=== PATIENT | female | born 1965 | race American Indian/Alaskan Native ===

== ENCOUNTER 2017-07-21 23:32 | Emergency (ER) | payer MEDICAID ==
[2017-07-22 00:58] LABS: RBC URINE 11 /hpf (0-3); URINE BACTERIA RARE (<OCC); URINE BILIRUBIN NEGATIVE (NEGATIVE); URINE BLOOD 1+ (NEGATIVE); URINE COLOR Yellow (YELLOW); URINE GLUCOSE (UA) NORMAL (Normal); URINE HYALINE CAST 0-2 /lpf (0-2); URINE KETONE 1+ mg/dL (NEGATIVE); URINE LEUKOCYTE ESTERASE 2+ Leu/uL (Negative); URINE PROTEIN 1+ mg/dL (NEGATIVE); WBC URINE 20 /hpf (0-5)
--- NOTE | 2017-07-22 01:10 | C.PDOC ---
History Of Present Illness 51 y/o female presents to ED with complaints of lower back pain for 1 day worse when walking or bending. Patient was seen at [facility] earlier and given Ibuprofen and as per patient "a shot for pain". Patient states pain went away but came back and now radiates to legs. Patient reports dysuria and denies injury, weakness, numbness or any other complaints at this time. Time Seen by Provider: 07/21/17 23:48 Chief Complaint (Nursing): Back Pain History Per: Patient History/Exam Limitations: no limitations Onset/Duration Of Symptoms: Days Current Symptoms Are (Timing): Still Present Quality Of Discomfort: "Pain" Past Medical History Reviewed: Historical Data, Nursing Documentation, Vital Signs Vital Signs: Last Vital Signs Temp 97.8 F 07/22/17 05:15 Pulse 73 07/22/17 05:15 Resp 18 07/22/17 05:15 BP 121/84 07/22/17 05:15 Pulse Ox 95 07/22/17 05:15 - Medical History PMH: Anemia (takes iron pills), Anxiety, Asthma, Bipolar Disorder, Depression, HTN, Seizures (uses keppra for control) Surgical History: Cholecystectomy - [facility] Procedures DETOXIFICATION SERVICES FOR SUBSTANCE ABUSE TREATMENT (02/13/16) GROUP POULTRY TENDER FOR SUBSTANCE ABUSE TREATMENT, PSYCHOEDUCATION (02/13/16) Family History: States: No Known Family Hx - Social History Hx Tobacco Use: Yes Hx Alcohol Use: Yes Hx Substance Use: No Review Of Systems Except As Marked, All Systems Reviewed And Found Negative. Constitutional: Negative for: Fever, Chills Gastrointestinal: Negative for: Nausea, Vomiting, Abdominal Pain Genitourinary: Positive for: Dysuria. Negative for: Hematuria Musculoskeletal: Positive for: Back Pain Skin: Negative for: Rash Neurological: Negative for: Weakness, Numbness Physical Exam - Physical Exam Appears: Non-toxic, No Acute Distress Skin: Warm, Dry, No Rash Head: Atraumatic, Normacephalic Eye(s): bilateral: Normal Inspection, PERRL, EOMI Oral Mucosa: Moist Neck: Normal ROM, No Midline Cervical Tenderness, No Paracervical Tenderness, Supple Chest: Symmetrical, No Tenderness Cardiovascular: Rhythm Regular, No Friction Rub, No Murmur Respiratory: Normal Breath Sounds, No Rales, No Rhonchi, No Wheezing Gastrointestinal/Abdominal: Soft, No Tenderness, No Guarding, No Rebound Back: Normal Inspection, No CVA Tenderness, No Vertebral Tenderness, No Paraspinal Tenderness Extremity: Normal ROM, No Calf Tenderness, Capillary Refill (<2 seconds), No Swelling Neurological/Psych: Oriented x3, Normal Motor, Normal Sensation Gait: Steady ED Course And Treatment O2 Sat by Pulse Oximetry: 98 (RA) Pulse Ox Interpretation: Normal Medical Decision Making Medical Decision Making: Patient did not have any urinary symptoms. Patient was informed of the LS spine xrays of wedge compression deformity. On re-exam, the patient reports improvement of symptoms. Lungs are CTA, heart is RRR, Ambulatory in ED with steady gait. Abdomen is soft, non-tender and patient is tolerating PO well. Follow up with the medical doctor within 1-2 days. Return if worsened. Disposition - Disposition Disposition: HOME/ ROUTINE Disposition Time: 06:30 Condition: GOOD Instructions: Back Pain (ED) Forms: [employer] (Maltese) - Clinical Impression Clinical Impression: Low back pain - PA / SUPERVISOR [employer] / Resident Statement MD/DO has reviewed & agrees with the documentation as recorded. - Scribe Statement The provider has reviewed the documentation as recorded by the Scriblisa Tamez All medical record entries made by the Ruby were at my direction and personally dictated by me. I have reviewed the chart and agree that the record accurately reflects my personal performance of the history, physical exam, medical decision making, and the department course for this patient. I have also personally directed, reviewed, and agree with the discharge instructions and disposition.
[2017-07-22 03:28] VITALS: RESP 18
[2017-07-22 05:15] VITALS: BP 121/84; PULSE 73; TEMP 97.8
[2017-07-22 06:57] VITALS: O2SAT 98
--- NOTE | 2017-07-22 10:38 | RAD ---
PROCEDURE: Radiographs of the Lumbar Spine. HISTORY: low back pain COMPARISON: No prior. FINDINGS: BONES: Loss of height L5 vertebral body. Diffuse osteopenia. DISC SPACES: Unremarkable. OTHER FINDINGS: Degenerative changes both hips. IMPRESSION: Loss of height L5 vertebral body likely old compression fracture.
== END 2017-07-22 05:31 | disposition home or self-care (01) ==
LOC: C.ER 23:32
DX: M54.5 Low back pain (principal)

== ENCOUNTER 2017-11-09 08:06 | Inpatient (IN) | payer MEDICAID ==
--- NOTE | 2017-11-09 08:50 | C.PDOC ---
History Of Present Illness 51-YEAR-OLD FEMALE, PRESENTS TO THE EMERGENCY DEPARTMENT STATING "I STILL FEEL SUICIDAL". PS SEEN @ [facility] YESTERDAY FOR SAME AND WAS DC. DOES NOT REPORT ACTIVE PLAN. +HEROIN AND COCAINE USE. HOMELESS EXAM NONTOXIC PSYCH +SI, NO ACTIVE HALLUCINATIONS CALM COOPERATIVE NO ACUTE INTOX OR WITHDRAWAL REMAIDNER NEG Time Seen by Provider: 11/09/17 08:46 Chief Complaint (Nursing): Psychiatric Evaluation History Per: Patient, EMS History/Exam Limitations: no limitations Onset/Duration Of Symptoms: Days Current Symptoms Are (Timing): Still Present Past Medical History Reviewed: Historical Data, Nursing Documentation, Vital Signs Vital Signs: Last Vital Signs Temp 98.1 F 11/09/17 08:12 Pulse 98 H 11/09/17 08:12 Resp 20 11/09/17 08:12 BP 137/94 H 11/09/17 08:12 Pulse Ox 100 11/09/17 11:34 - Medical History PMH: Anemia (takes iron pills), Anxiety, Asthma, Bipolar Disorder, Depression, HTN, Seizures (uses keppra for control) Denies: Diabetes, Hepatitis, HIV, Chronic Kidney Disease, Sexually Transmitted Disease Surgical History: Cholecystectomy - [facility] Procedures DETOXIFICATION SERVICES FOR SUBSTANCE ABUSE TREATMENT (08/17/17) GROUP RUBBER MOLDER FOR SUBSTANCE ABUSE TREATMENT, PSYCHOEDUCATION (02/13/16) INDIV PSYCHOTHERAPY FOR SUBSTANCE ABUSE TREATMENT, SUPPORT (08/17/17) INDIV PSYCHOTHERAPY FOR SUBSTANCE ABUSE, COGNITIV BEHAVIORAL (08/17/17) INDIV PSYCHOTHERAPY FOR SUBSTANCE ABUSE, PSYCHOEDUCATION (08/17/17) Family History: States: No Known Family Hx - Social History Hx Tobacco Use: Yes Hx Alcohol Use: No Hx Substance Use: Yes (cocaine, and heroin use) - Immunization History Hx Tetanus Toxoid Vaccination: No Hx Influenza Vaccination: No Hx Pneumococcal Vaccination: No Review Of Systems Except As Marked, All Systems Reviewed And Found Negative. Constitutional: Negative for: Fever, Chills Cardiovascular: Negative for: Chest Pain, Palpitations Respiratory: Negative for: Shortness of Breath Gastrointestinal: Negative for: Nausea, Vomiting Neurological: Negative for: Headache, Dizziness Psych: Positive for: Depression, Suicidal ideation. Negative for: Withdrawal Physical Exam - Physical Exam Appears: Non-toxic, No Acute Distress, Other ( +SI, NO ACTIVE HALLUCINATIONS CALM COOPERATIVE NO ACUTE INTOX OR WITHDRAWAL) Skin: Normal Color, Warm, Dry, No Rash Head: Normacephalic Eye(s): bilateral: PERRL Nose: Normal Oral Mucosa: Moist Lips: Normal Appearing Neck: Normal ROM Cardiovascular: Rhythm Regular, No Murmur Respiratory: Normal Breath Sounds, No Accessory Muscle Use Extremity: Normal ROM, Capillary Refill (<2 SECONDS), No Deformity, No Swelling Neurological/Psych: Oriented x3, Normal Speech ED Course And Treatment - Laboratory Results Result Diagrams: 11/09/17 09:20 11/09/17 09:20 O2 Sat by Pulse Oximetry: 100 Progress - Re-Evaluation Re-evaluation Note: 11/09/17 08:54 D/W CRISIS WILL EVAL IN ER 11/09/17 11:34 MED CLEAR FOR PSYCH. CRISIS NOTIFIED - Data Reviewed Data Reviewed: Lab, Old records - Continuity of Care Discussed pt. case with sales consultant/specialty: Psychiatry Medical Decision Making Medical Decision Making: Plan: * Labs * UA * Reassess and Disposition Disposition Counseled Patient/Family Regarding: Studies Performed, Diagnosis - Disposition Disposition: HOSPITALIZED Disposition Time: 14:12 Condition: STABLE Forms: [employer] ([place] Citizen) - Clinical Impression Clinical Impression: Bipolar disorder, Drug abuse - Scribe Statement The provider has reviewed the documentation as recorded by the Scribe (Henrik Pena) All medical record entries made by the Scribe were at my direction and personally dictated by me. I have reviewed the chart and agree that the record accurately reflects my personal performance of the history, physical exam, medical decision making, and the department course for this patient. I have also personally directed, reviewed, and agree with the discharge instructions and disposition. Decision To Admit - Pt Status Changed To: Hospital Disposition Of: Inpatient - Admit Certification Admit to Inpatient:: After my assessment, the patient will require hospitalization for at least two midnights. This is because of the severity of symptoms shown, intensity of services needed, and/or the medical risk in this patient being treated as an outpatient. - InPatient: Physician Admission Certification: I certify that this patient requires 2 or more midnights of care for the following reason:: SEENOTE - . Bed Request Type: Detox Admitting Physician: Gilson Lord Patient Diagnosis: Bipolar disorder, Drug abuse
[2017-11-09 09:29] LABS: BASO % 0.6 % (0.0-2.0); EOS # 0.2 K/uL (0.0-0.7); EOS % 2.1 % (0.0-4.0); HEMOGLOBIN 10.5 g/dL (11.0-16.0); LYMPH # 2.3 K/uL (1.0-4.3); LYMPH % 26.5 % (20.0-40.0); MEAN CELL VOLUME 80.4 fL (81.0-99.0); MEAN CORPUSCULAR HEMOGLOBIN 26.7 pg (27.0-31.0); MEAN CORPUSCULAR HGB CONC 33.2 g/dL (33.0-37.0); MEAN PLATELET VOLUME 8.8 fL (7.2-11.7); MONO # 0.5 K/uL (0.0-0.8); MONO % 6.3 % (0.0-10.0); NEUT # 5.5 K/uL (1.8-7.0); NEUT % 64.5 % (50.0-75.0); RBC 3.94 Mil/uL (3.80-5.20); WHITE BLOOD COUNT 8.6 K/uL (4.8-10.8)
[2017-11-09 09:46] LABS: ALB/GLOB RATIO 1.1 (1.0-2.1); ALBUMIN 3.4 g/dL (3.5-5.0); ALT/SGPT 17 U/L (9-52); AST/SGOT 27 U/L (14-36); BLOOD UREA NITROGEN 15 mg/dL (7-17); GFR AFRICAN-AMERICAN > 60; GFR NON-AFRICAN AMERICAN 58
[2017-11-09 10:42] LABS: SQUAMOUS EPITHIAL 9 /hpf (0-5); URINE BACTERIA RARE (<OCC); URINE BILIRUBIN NEGATIVE (NEGATIVE); URINE BLOOD NEGATIVE (NEGATIVE); URINE CLARITY Hazy (Clear); URINE COLOR Yellow (YELLOW); URINE GLUCOSE (UA) NORMAL (Normal); URINE LEUKOCYTE ESTERASE TRACE Leu/uL (Negative); URINE PROTEIN NEGATIVE (NEGATIVE)
[2017-11-09 10:59] LABS: BARBITURATES, UR NEGATIVE (NEGATIVE); BENZODIAZEPINES, UR NEGATIVE (NEGATIVE); PHENCYCLIDINE, UR NEGATIVE (NEGATIVE)
[2017-11-09 11:33] LABS: OPIATES, UR POSITIVE (NEGATIVE)
[2017-11-09] MEDS ORDERED: Potassium Chloride 20 mEq/15 ml LIQ UD PO STA (14:52)
--- NOTE | 2017-11-09 16:17 | PCM.BM ---
<Lisset Adams - Last Filed: 11/09/17 16:14> Treatment Plan Problems - Problems identified on initial assessmt Depression Date Initiated: 11/09/17 Time Initiated: 16:14 Assessment reference: NA Status: Active Treatment assets and liabiliti Patient Assests: cooperative, negotiates basic needs Patient Liabilities: live alone, substance abuse (long hx of heroin/cocaine abuse since age 17 - intranasal) - Milieu Protocol Maintain good personal hygiene: daily Encourage regular showers, daily Remind patient to perform daily oral care Conduct patient checks and document Observation sheet: Q15 minutes Maintain personal safety: every shift Educate patient to report safety concerns to staff, every shift Monitor environment for contraband/sharps Medication safety: Monitor for expected outcome, potential side effects: every shift, Assess barriers to learning: every shift, Assess readiness for medication education: every shift <Dominique Marcelo - Last Filed: 11/10/17 11:17> Family Contact Family involvement: Famliy/SO not involved - Goals for Treatment Patient goals for treatment: "I want to go to rehab." Discharge/Continuing Care - Education Needs Education Needs: Patient Medication, Patient Coping Skills - Discharge Discharge Criteria: Tolerates medication w/o severe side effects, Reduction of target symptoms Discharge to:: Substance Abuse Rehab - Treatment Team Participation Discussed with Family/SO: No Was Patient/Family/SO present at Treatment Team Meeting: Yes <Aurelia Hemphill - Last Filed: 11/11/17 00:03> - Diagnosis (1) Major depressive disorder, recurrent episode, severe, with psychotic behavior Status: Acute Interventions: 11/11/17 00:03 * Assess/adjust medications daily and /or as needed * See patient on an individual basis 7x/week to assess symptoms of depression * Monitor for side effects & effectiveness of medications * (2) Opioid abuse Status: Acute Interventions: 11/11/17 00:03 * Assess 7x/week regarding severity of withdrawal * Educate regarding risks, benefits, side effects and alternatives of medications * Use Motivational Interviewing for abstinence * Use CBT for relapse prevention * Medication management for withdrawal symptoms * Encourage medication assisted treatment *
[2017-11-09] MEDS ORDERED: Albuterol HFA 90 mcg/actuation (8 g) INH PRN (17:48)
[2017-11-09] MEDS ORDERED: Naproxen 550 mg Tab PO SCH (18:45)
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
[2017-11-11] MEDS: Naproxen 550 mg Tab PO PRN (09:50)
--- NOTE | 2017-11-11 14:12 | PCM.PYCHPN ---
Psychiatric Progress Note - Psychiatric Progress Note Patient seen today, length of contact: 16 min Patient Chief Complaint: "I'm still depressed" Problems Identified/Issues Discussed: The pt is seen, chart reviewed, case discussed with staff. Support given, CBT and IA used briefly. Patient states that she still feels quite depressed today and having brief instances of suicidal thoughts. She reports still hearing voices, but they have become less pronounced and less frequent. Additionally she mentions having mild back pain as well. Denies any nausea, vomiting, diarrhea, SOB, CP, PRINGLE, congestion. She is improving slowly and needs more time. No SEs from medications, risks discussed. After care discussed Medication Change: Yes (psych changes daily) Medical Record Reviewed: Yes Mental Status Examination - Cognitive Function Orientation: Person, Place, Situation, Time Memory: Intact Attention: WNL Concentration: WNL Association: WNL Fund of Knowledge: WNL - Mood Mood: Depressed - Affect Affect: Depressed - Speech Speech: Soft - Formal Thought Process Formal Thought Process: No Impairment, Hallucinations - Suicidal Ideation Suicidal Ideation: Yes Plan: No specific plan - Homicidal Ideation Homicidal Ideation: No Goal/Treatment Plan - Goal/Treatment Plan Need for Continued Stay: Remain at risks for inpatient hospitalization, Severe depression anxiety, Discharge may exacerbated symptoms, Severe functional impairment Progress Toward Problem(s) and Goals/Treatment Plan: Methadone detox Gabapentin for augmentation Lexapro As needed medications, including naproxen for lower back pain. All risks, benefits and alternatives of the meds discussed, and the pt agreed and understood. Attend groups and activities Individual therapy daily Supportive therapy and psychoeducation [place] for abstinence CBT for relapse prevention Encourage MAT Refer to rehab or IOP, and self-help groups Refer to outpatient program Teach healthy lifestyle methods, i.e. diet, exercise, meditation - Smoking Cessation Smoking Cessation Initiated: No
[2017-11-12] MEDS: Naproxen 550 mg Tab PO PRN (09:11)
--- NOTE | 2017-11-12 12:29 | PCM.PYCHPN ---
Psychiatric Progress Note - Psychiatric Progress Note Patient seen today, length of contact: 17 min Patient Chief Complaint: "I'm depressed" Problems Identified/Issues Discussed: The patient iss seen, chart reviewed, case discussed with staff. Support given, CBT and MO used briefly. As per RNs, patient mostly stays in her room and sleeps throughout the day and night. The only time she comes out of her room is during meal time. However, it is also noted that she does come up to the nursing station frequently throughout the night requesting more food. This morning, patient states that she is still feeling very depressed. She admits to having a dream last night where she killed herself, however, she denies having these feelings this morning since she has been awake. Patient is still hearing voices a few times/day but they are mostly low volume and less frequent then before. Denies any nausea, vomiting, diarrhea, SOB, CP, PRINGLE, congestion. She is improving slowly and needs more time. No SEs from medications, risks discussed. After care discussed. Medication Change: Yes (psych changes daily) Medical Record Reviewed: Yes Mental Status Examination - Cognitive Function Orientation: Person, Place, Situation, Time Memory: Intact Attention: WNL Concentration: WNL Association: [facility] Fund of Knowledge: WN - Mood Mood: Depressed - Affect Affect: Depressed - Speech Speech: Soft - Formal Thought Process Formal Thought Process: No Impairment, Hallucinations - Suicidal Ideation Suicidal Ideation: No Plan: had dream last night but no plan and no ideations during exam - Homicidal Ideation Homicidal Ideation: No Goal/Treatment Plan - Goal/Treatment Plan Need for Continued Stay: Remain at risks for inpatient hospitalization, Severe depression anxiety, Discharge may exacerbated symptoms, Severe functional impairment Progress Toward Problem(s) and Goals/Treatment Plan: Methadone d/c'd Continue Gabapentin Continue Lexapro As needed medications, including naproxen prn for lower back pain. All risks, benefits and alternatives of the meds discussed, and the pt agreed and understood. Encourage patient to attend groups and activities Individual therapy daily Supportive therapy and psychoeducation [place] for abstinence CBT for relapse prevention Encourage MAT Refer to rehab or IOP, and self-help groups Refer to outpatient program Teach healthy lifestyle methods, i.e. diet, exercise, meditation
[2017-11-13] MEDS: Naproxen 550 mg Tab PO PRN (09:39)
--- NOTE | 2017-11-13 12:13 | PCM.PYCHPN ---
Psychiatric Progress Note - Psychiatric Progress Note Patient seen today, length of contact: 16 min Patient Chief Complaint: "I'm improving" Problems Identified/Issues Discussed: The pt is seen, chart reviewed, case discussed with staff. Support given, CBT and CA used briefly No new symptoms reported, improving slowly and needs more time No SEs from medications, risks discussed. After care discussed - wants rehab but she shows no motivation for it and stays in bed a lot Medication Change: Yes (dose increase) Medical Record Reviewed: Yes Mental Status Examination - Cognitive Function Orientation: Person, Place, Situation, Time Memory: Intact Attention: WNL Concentration: WNL Association: WNL Fund of Knowledge: WNL - Mood Mood: Depressed - Affect Affect: Constricted - Speech Speech: Soft - Formal Thought Process Formal Thought Process: No Impairment, Hallucinations - Suicidal Ideation Suicidal Ideation: No - Homicidal Ideation Homicidal Ideation: No Goal/Treatment Plan - Goal/Treatment Plan Need for Continued Stay: Severe depression anxiety, Discharge may exacerbated symptoms, Severe functional impairment Progress Toward Problem(s) and Goals/Treatment Plan: Continue Gabapentin Continue Lexapro As needed medications, including naproxen prn for lower back pain. All risks, benefits and alternatives of the meds discussed, and the pt agreed and understood. Encourage patient to attend groups and activities Individual therapy daily Supportive therapy and psychoeducation [place] for abstinence CBT for relapse prevention Encourage MAT Refer to rehab or IOP, and self-help groups Refer to outpatient program Teach healthy lifestyle methods, i.e. diet, exercise, meditation
--- NOTE | 2017-11-14 11:07 | PCM.PYCHPN ---
Psychiatric Progress Note - Psychiatric Progress Note Patient seen today, length of contact: 16 min Patient Chief Complaint: "I'm tired" Problems Identified/Issues Discussed: The pt is seen, chart reviewed, case discussed with staff. Support given, CBT and PA used briefly No new symptoms reported, improving slowly and needs more time No SEs from medications, risks discussed. After care discussed - she is neither interested in rehab, nor motivated. [employer] Maintainer discussed risks. Medication Change: Yes (lexapro dose increased) Medical Record Reviewed: Yes Mental Status Examination - Cognitive Function Orientation: Person, Place, Situation, Time Memory: Intact Attention: WNL Concentration: WNL Association: [facility] Fund of Knowledge: WN - Mood Mood: Depressed - Affect Affect: Constricted - Speech Speech: Soft - Formal Thought Process Formal Thought Process: No Impairment, Hallucinations - Suicidal Ideation Suicidal Ideation: No - Homicidal Ideation Homicidal Ideation: No Goal/Treatment Plan - Goal/Treatment Plan Need for Continued Stay: Severe depression anxiety, Discharge may exacerbated symptoms, Severe functional impairment Progress Toward Problem(s) and Goals/Treatment Plan: Continue Gabapentin Continue Lexapro As needed medications, including naproxen prn for lower back pain. All risks, benefits and alternatives of the meds discussed, and the pt agreed and understood. Encourage patient to attend groups and activities Individual therapy daily Supportive therapy and psychoeducation [place] for abstinence CBT for relapse prevention Encourage MAT Refer to rehab or IOP, and self-help groups Refer to outpatient program Teach healthy lifestyle methods, i.e. diet, exercise, meditation
[2017-11-15] MEDS: Naproxen 550 mg Tab PO PRN (09:06)
--- NOTE | 2017-11-17 10:14 | PCM.BM ---
<Dominique Marcelo - Last Filed: 11/17/17 10:14> Treatment Plan Problems - Problems identified on initial assessmt Depression Date Initiated: 11/09/17 Time Initiated: 16:14 Assessment reference: NA Status: Active Treatment assets and liabiliti Patient Assests: cooperative, negotiates basic needs Patient Liabilities: live alone, substance abuse (long hx of heroin/cocaine abuse since age 17 - intranasal) - Milieu Protocol Maintain good personal hygiene: daily Encourage regular showers, daily Remind patient to perform daily oral care Conduct patient checks and document Observation sheet: Q15 minutes Maintain personal safety: every shift Educate patient to report safety concerns to staff, every shift Monitor environment for contraband/sharps Medication safety: Monitor for expected outcome, potential side effects: every shift, Assess barriers to learning: every shift, Assess readiness for medication education: every shift Milieu Narrative: Continue Gabapentin Continue Lexapro As needed medications, including naproxen prn for lower back pain. All risks, benefits and alternatives of the meds discussed, and the pt agreed and understood. Encourage patient to attend groups and activities Individual therapy daily Supportive therapy and psychoeducation [place] for abstinence CBT for relapse prevention Encourage MAT Refer to rehab or IOP, and self-help groups Refer to outpatient program Teach healthy lifestyle methods, i.e. diet, exercise, meditation Family Contact Family involvement: Famliy/SO not involved - Goals for Treatment Patient goals for treatment: "I want to go to rehab." Discharge/Continuing Care - Education Needs Education Needs: Patient Medication, Patient Coping Skills - Discharge Discharge Criteria: Tolerates medication w/o severe side effects, Reduction of target symptoms Discharge to:: Substance Abuse Rehab - Treatment Team Participation Patient/Family/SO Statement: Continue Gabapentin Continue Lexapro As needed medications, including naproxen prn for lower back pain. All risks, benefits and alternatives of the meds discussed, and the pt agreed and understood. Encourage patient to attend groups and activities Individual therapy daily Supportive therapy and psychoeducation [place] for abstinence CBT for relapse prevention Encourage MAT Refer to rehab or IOP, and self-help groups Refer to outpatient program Teach healthy lifestyle methods, i.e. diet, exercise, meditation Discussed with Family/SO: No Was Patient/Family/SO present at Treatment Team Meeting: Yes Treatment Plan Review - Problem Depression Time Initiated: 16:14 - Discharge / Continuing Care Discharge to:: [facility]: Intensive Outpatient Health Needs: Medications/Rx, Alcohol/Drug treatment <Aurelia Hemphill - Last Filed: 11/17/17 12:57> - Diagnosis (1) Major depressive disorder, recurrent episode, severe, with psychotic behavior Status: Acute Interventions: 11/17/17 12:58 * Assess/adjust medications daily and /or as needed * See patient on an individual basis 7x/week to assess symptoms of depression * Monitor for side effects & effectiveness of medications * (2) Opioid abuse Status: Acute Interventions: 11/17/17 12:58 * * Educate regarding risks, benefits, side effects and alternatives of medications * Use Motivational Interviewing for abstinence * Use CBT for relapse prevention * Medication management for withdrawal symptoms * Encourage medication assisted treatment * (3) Suicidal ideation Status: Acute Interventions: 11/17/17 12:59 * Assess/adjust medications daily and /or as needed * Discuss risks, benefits, side effects and alternatives of medications * See patient on an individual basis 7x/week to assess level of suicidal thoughts * <Christie Burgos - Last Filed: 11/18/17 14:22> Treatment Plan Review - Problem Depression Date Initiated: 11/18/17 Time Initiated: 14:22 Progress toward outcomes: improved
--- NOTE | 2017-11-17 13:02 | PCM.PYCHPN ---
Psychiatric Progress Note - Psychiatric Progress Note Patient seen today, length of contact: 16 min Patient Chief Complaint: "I'm not well" Problems Identified/Issues Discussed: The pt is seen, chart reviewed, case discussed with staff. Support given, CBT and [place] used briefly She is in close observation room bc she voiced SI and some vague plan, "knives" and still does. She understood and agreed with how to cope with this. Meds adjusted No intention or urge - will follow safety plan and contracted for safety Medication Change: Yes (lexapro dose increased) Medical Record Reviewed: Yes Mental Status Examination - Cognitive Function Orientation: Person, Place, Situation, Time Memory: Intact Attention: WNL Concentration: Poor Association: WNL Fund of Knowledge: Poor - Mood Mood: Depressed - Affect Affect: Constricted - Speech Speech: Soft - Formal Thought Process Formal Thought Process: No Impairment, Hallucinations - Suicidal Ideation Suicidal Ideation: No - Homicidal Ideation Homicidal Ideation: No Goal/Treatment Plan - Goal/Treatment Plan Need for Continued Stay: Severe depression anxiety, Discharge may exacerbated symptoms, Severe functional impairment Progress Toward Problem(s) and Goals/Treatment Plan: Continue Gabapentin Continue Lexapro As needed medications, including naproxen prn for lower back pain. All risks, benefits and alternatives of the meds discussed, and the pt agreed and understood. Encourage patient to attend groups and activities Individual therapy daily Supportive therapy and psychoeducation [place] for abstinence CBT for relapse prevention Encourage MAT Refer to rehab or IOP, and self-help groups Refer to outpatient program Teach healthy lifestyle methods, i.e. diet, exercise, meditation
[2017-11-17] MEDS: Naproxen 550 mg Tab PO PRN (21:52)
--- NOTE | 2017-11-18 14:00 | PCM.PYCHPN ---
Psychiatric Progress Note - Psychiatric Progress Note Patient seen today, length of contact: 18 min Patient Chief Complaint: "I'm the same" Problems Identified/Issues Discussed: The pt is seen, chart reviewed, case discussed with staff. Still having SI 2-3 x a day, 20 min or so, no intention or urge Very worried about her homelessness of 3 months, which is likely why she is getting more stressed and at times suicidal How to deal discussed, support given, psychoed given. relaxation techniques taught Meds adjusted Has vague AVH and questionable paranoia and significant anxiety - meds started Medication Change: Yes (seroquel and klonopin added) Medical Record Reviewed: Yes Mental Status Examination - Cognitive Function Orientation: Person, Place, Situation, Time Memory: Intact Attention: WNL Concentration: Poor Association: WNL Fund of Knowledge: Poor - Mood Mood: Depressed - Affect Affect: Constricted - Speech Speech: Soft - Formal Thought Process Formal Thought Process: No Impairment, Hallucinations, Paranoia - Suicidal Ideation Suicidal Ideation: Yes Plan: no plan or urge - Homicidal Ideation Homicidal Ideation: No Goal/Treatment Plan - Goal/Treatment Plan Need for Continued Stay: Severe depression anxiety, Discharge may exacerbated symptoms, Severe functional impairment Progress Toward Problem(s) and Goals/Treatment Plan: Continue Gabapentin Continue Lexapro Add seroquel and klonopin As needed medications, including naproxen prn for lower back pain. All risks, benefits and alternatives of the meds discussed, and the pt agreed and understood. Encourage patient to attend groups and activities Individual therapy daily Supportive therapy and psychoeducation [place] for abstinence CBT for relapse prevention Encourage MAT Refer to rehab or IOP, and self-help groups Refer to outpatient program Teach healthy lifestyle methods, i.e. diet, exercise, meditation
[2017-11-19] MEDS: Aluminum Hydroxide/Magnesium Hydroxide Susp (30 mL) PO PRN (13:50)
[2017-11-20] MEDS: Naproxen 550 mg Tab PO PRN (09:11)
[2017-11-21] MEDS: Naproxen 550 mg Tab PO PRN (09:57)
--- NOTE | 2017-11-21 14:45 | PCM.PYCHPN ---
Psychiatric Progress Note - Psychiatric Progress Note Patient seen today, length of contact: 19 min Patient Chief Complaint: "I'm okay" Problems Identified/Issues Discussed: The pt is seen, chart reviewed, case discussed with staff. Still having SI 2-3 x a day, 20 min or so, no intention or urge Very worried about her homelessness of 3 months, which is likely why she is getting more stressed and at times suicidal How to deal discussed, support given, psychoed given. relaxation techniques taught Meds adjusted Has vague AVH and questionable paranoia and significant anxiety - meds started Pt still reporting vague AVH Medication Change: Yes (seroquel and klonopin added) Medical Record Reviewed: Yes Mental Status Examination - Cognitive Function Orientation: Person, Place, Situation, Time Memory: Intact Attention: WNL Concentration: Poor Association: WNL Fund of Knowledge: Poor - Mood Mood: Depressed - Affect Affect: Constricted - Speech Speech: Soft - Formal Thought Process Formal Thought Process: No Impairment, Hallucinations, Paranoia - Suicidal Ideation Suicidal Ideation: Yes - Homicidal Ideation Homicidal Ideation: No Goal/Treatment Plan - Goal/Treatment Plan Need for Continued Stay: Severe depression anxiety, Discharge may exacerbated symptoms, Severe functional impairment Progress Toward Problem(s) and Goals/Treatment Plan: Continue Gabapentin Continue Lexapro Add seroquel and klonopin As needed medications, including naproxen prn for lower back pain. All risks, benefits and alternatives of the meds discussed, and the pt agreed and understood. Encourage patient to attend groups and activities Individual therapy daily Supportive therapy and psychoeducation [place] for abstinence CBT for relapse prevention Encourage MAT Refer to rehab or IOP, and self-help groups Refer to outpatient program Teach healthy lifestyle methods, i.e. diet, exercise, meditation
[2017-11-22] MEDS: Naproxen 550 mg Tab PO PRN (09:29)
--- NOTE | 2017-11-22 21:49 | PCM.PYCHPN ---
Psychiatric Progress Note - Psychiatric Progress Note Patient seen today, length of contact: 5 min Patient Chief Complaint: "I'm not well today" Problems Identified/Issues Discussed: The pt is seen, chart reviewed, case discussed with staff. Support given, CBT and [place] used briefly No new symptoms reported, improving slowly and needs more time No SEs from medications, risks discussed. After care discussed - rejected by Ally Grimaldo in [facility] Medication Change: No Medical Record Reviewed: Yes Mental Status Examination - Cognitive Function Orientation: Person, Place, Situation, Time Memory: Intact Attention: WNL Concentration: Poor Association: WNL Fund of Knowledge: Poor - Mood Mood: Depressed - Affect Affect: Constricted - Speech Speech: Soft - Formal Thought Process Formal Thought Process: No Impairment, Hallucinations, Paranoia - Suicidal Ideation Suicidal Ideation: Yes - Homicidal Ideation Homicidal Ideation: No Goal/Treatment Plan - Goal/Treatment Plan Need for Continued Stay: Severe depression anxiety, Discharge may exacerbated symptoms, Severe functional impairment Progress Toward Problem(s) and Goals/Treatment Plan: Continue Gabapentin Continue Lexapro Continue seroquel and klonopin As needed medications, including naproxen prn for lower back pain. All risks, benefits and alternatives of the meds discussed, and the pt agreed and understood. Encourage patient to attend groups and activities Individual therapy daily Supportive therapy and psychoeducation [place] for abstinence CBT for relapse prevention Encourage MAT Refer to rehab or IOP, and self-help groups Refer to outpatient program Teach healthy lifestyle methods, i.e. diet, exercise, meditation
[2017-11-23] MEDS: Naproxen 550 mg Tab PO PRN (09:15)
[2017-11-23] MEDS ORDERED: Simethicone 80 mg Chewtab PO PRN (16:00)
--- NOTE | 2017-11-23 23:14 | PCM.PYCHPN ---
Psychiatric Progress Note - Psychiatric Progress Note Patient seen today, length of contact: 17 min Patient Chief Complaint: "I'm nervous" Problems Identified/Issues Discussed: The pt is seen, chart reviewed, case discussed with staff. The pt is compliant with medications and reports no side-effects. Symptoms are improving but needs more time to stabilize. After care discussed, support and psychoeducation given. She is upset that [facility] rejected her. SW will now refer to SA in [facility]. Still in bed a lot. No SI today Medication Change: No Medical Record Reviewed: Yes Mental Status Examination - Cognitive Function Orientation: Person, Place, Situation, Time Memory: Intact Attention: WNL Concentration: Poor Association: WNL Fund of Knowledge: Poor - Mood Mood: Depressed - Affect Affect: Constricted - Speech Speech: Soft - Formal Thought Process Formal Thought Process: No Impairment, Hallucinations, Paranoia - Suicidal Ideation Suicidal Ideation: Yes - Homicidal Ideation Homicidal Ideation: No Goal/Treatment Plan - Goal/Treatment Plan Need for Continued Stay: Severe depression anxiety, Discharge may exacerbated symptoms, Severe functional impairment Progress Toward Problem(s) and Goals/Treatment Plan: Continue Gabapentin Continue Lexapro Continue seroquel and klonopin As needed medications, including naproxen prn for lower back pain. All risks, benefits and alternatives of the meds discussed, and the pt agreed and understood. Encourage patient to attend groups and activities Individual therapy daily Supportive therapy and psychoeducation [place] for abstinence CBT for relapse prevention Encourage MAT Refer to rehab or IOP, and self-help groups Refer to outpatient program Teach healthy lifestyle methods, i.e. diet, exercise, meditation
[2017-11-24] MEDS: Naproxen 550 mg Tab PO PRN (09:05)
[2017-11-24] MEDS: Aluminum Hydroxide/Magnesium Hydroxide Susp (30 mL) PO PRN (14:02)
--- NOTE | 2017-11-24 14:52 | PCM.PYCHPN ---
Psychiatric Progress Note - Psychiatric Progress Note Patient seen today, length of contact: 18 min Patient Chief Complaint: "I'm nervous but sleeping better" Problems Identified/Issues Discussed: The pt is seen, chart reviewed, case discussed with staff. The pt is compliant with medications and reports no side-effects. Symptoms are improving but needs more time to stabilize. After care discussed, support and psychoeducation given. She is upset that [facility] rejected her. SW will now refer to in [facility]. Still in bed a lot. No SI today. Pt sleeping better Medication Change: No Medical Record Reviewed: Yes Mental Status Examination - Cognitive Function Orientation: Person, Place, Situation, Time Memory: Intact Attention: WNL Concentration: Poor Association: WNL Fund of Knowledge: Poor - Mood Mood: Depressed - Affect Affect: Constricted - Speech Speech: Soft - Formal Thought Process Formal Thought Process: No Impairment, Hallucinations, Paranoia - Suicidal Ideation Suicidal Ideation: Yes - Homicidal Ideation Homicidal Ideation: No Goal/Treatment Plan - Goal/Treatment Plan Need for Continued Stay: Severe depression anxiety, Discharge may exacerbated symptoms, Severe functional impairment Progress Toward Problem(s) and Goals/Treatment Plan: Continue Gabapentin Continue Lexapro Continue seroquel and klonopin As needed medications, including naproxen prn for lower back pain. All risks, benefits and alternatives of the meds discussed, and the pt agreed and understood. Encourage patient to attend groups and activities Individual therapy daily Supportive therapy and psychoeducation [place] for abstinence CBT for relapse prevention Encourage MAT Refer to rehab or IOP, and self-help groups Refer to outpatient program Teach healthy lifestyle methods, i.e. diet, exercise, meditation Pending [facility] interview
[2017-11-25] MEDS: Naproxen 550 mg Tab PO PRN (06:25)
--- NOTE | 2017-11-25 13:00 | PCM.PYCHPN ---
Psychiatric Progress Note - Psychiatric Progress Note Patient seen today, length of contact: 18 min Patient Chief Complaint: "Im feeling well today" Problems Identified/Issues Discussed: The pt is seen, chart reviewed, case discussed with staff. Support given, CBT and [place] used briefly. Patient states that she feels well today and received adequate sleep last night. Denies any SI/HI or hallucinations currently. No new symptoms reported, improving slowly and needs more time. No SEs from medications , risks discussed. After care discussed, phone interview with [facility] ( [place]) still pending. Medication Change: No Medical Record Reviewed: Yes Mental Status Examination - Cognitive Function Orientation: Person, Place, Situation, Time Memory: Intact Attention: WNL Concentration: Poor Association: WNL Fund of Knowledge: Poor - Mood Mood: Depressed - Affect Affect: Constricted - Speech Speech: Soft - Formal Thought Process Formal Thought Process: No Impairment - Suicidal Ideation Suicidal Ideation: No - Homicidal Ideation Homicidal Ideation: No Goal/Treatment Plan - Goal/Treatment Plan Need for Continued Stay: Severe depression anxiety, Discharge may exacerbated symptoms, Severe functional impairment Progress Toward Problem(s) and Goals/Treatment Plan: Continue Gabapentin Continue Lexapro Continue seroquel and klonopin As needed medications, including naproxen prn for lower back pain. All risks, benefits and alternatives of the meds discussed, and the pt agreed and understood. Encourage patient to attend groups and activities Individual therapy daily Supportive therapy and psychoeducation [place] for abstinence CBT for relapse prevention Encourage MAT Refer to rehab or IOP, and self-help groups Refer to outpatient program Teach healthy lifestyle methods, i.e. diet, exercise, meditation After care planning by ROC, still pending [facility] interview
--- NOTE | 2017-11-26 10:56 | PCM.PYCHPN ---
Psychiatric Progress Note - Psychiatric Progress Note Patient seen today, length of contact: 18 min Patient Chief Complaint: "Im feeling well today" Problems Identified/Issues Discussed: Patient seen and evaluated, chart reviewed and discussed with the nurse. Pt reports improvement in her depressed mood. Patient is compliant with medications and denies any side effects. She is still waiting for reply from programs for rehab. Symptoms are improving but need more time to stabilize. Support and psychoeducation given. Medication Change: No Medical Record Reviewed: Yes Mental Status Examination - Cognitive Function Orientation: Person, Place, Situation, Time Memory: Intact Attention: WNL Concentration: Poor Association: WNL Fund of Knowledge: Poor - Mood Mood: Depressed - Affect Affect: Constricted - Speech Speech: Soft - Formal Thought Process Formal Thought Process: No Impairment - Suicidal Ideation Suicidal Ideation: No - Homicidal Ideation Homicidal Ideation: No Goal/Treatment Plan - Goal/Treatment Plan Need for Continued Stay: Severe depression anxiety, Discharge may exacerbated symptoms, Severe functional impairment Progress Toward Problem(s) and Goals/Treatment Plan: Continue Gabapentin Continue Lexapro Continue seroquel and klonopin As needed medications, including naproxen prn for lower back pain. All risks, benefits and alternatives of the meds discussed, and the pt agreed and understood. Encourage patient to attend groups and activities Individual therapy daily Supportive therapy and psychoeducation [place] for abstinence CBT for relapse prevention Encourage MAT Refer to rehab or IOP, and self-help groups Refer to outpatient program Teach healthy lifestyle methods, i.e. diet, exercise, meditation After care planning by ROC, still pending [facility] interview
[2017-11-27 08:36] VITALS: O2SAT 99
--- NOTE | 2017-11-27 17:34 | PCM.PYCHPN ---
Psychiatric Progress Note - Psychiatric Progress Note Patient seen today, length of contact: 19 min Patient Chief Complaint: "I'm nervous" Problems Identified/Issues Discussed: The pt is seen, chart reviewed, case discussed with staff. The pt is compliant with medications and reports no side-effects. Symptoms are improving but needs more time to stabilize. After care discussed, support and psychoeducation given. She is upset that [facility] rejected her. SW will now refer to SA in [facility]. Pt told [facility] in [facility] that she has back problems and was denied admission Still in bed a lot. No SI today. Pt sleeping better Medication Change: No Medical Record Reviewed: Yes Mental Status Examination - Cognitive Function Orientation: Person, Place, Situation, Time Memory: Intact Attention: WNL Concentration: Poor Association: WNL Fund of Knowledge: Poor - Mood Mood: Depressed - Affect Affect: Constricted - Speech Speech: Soft - Formal Thought Process Formal Thought Process: No Impairment - Suicidal Ideation Suicidal Ideation: No - Homicidal Ideation Homicidal Ideation: No Goal/Treatment Plan - Goal/Treatment Plan Need for Continued Stay: Severe depression anxiety, Discharge may exacerbated symptoms, Severe functional impairment Progress Toward Problem(s) and Goals/Treatment Plan: Continue Gabapentin Continue Lexapro Continue seroquel and klonopin As needed medications, including naproxen prn for lower back pain. All risks, benefits and alternatives of the meds discussed, and the pt agreed and understood. Encourage patient to attend groups and activities Individual therapy daily Supportive therapy and psychoeducation [place] for abstinence CBT for relapse prevention Encourage MAT Refer to rehab or IOP, and self-help groups Refer to outpatient program Teach healthy lifestyle methods, i.e. diet, exercise, meditation Will attempt homeless fdc placement
[2017-11-28] MEDS: Naproxen 550 mg Tab PO PRN (00:07)
[2017-11-28 06:20] VITALS: RESP 18; TEMP 97.6
--- NOTE | 2017-11-28 11:11 | PCM.PYCHDC ---
Mental Status Examination - Mental Status Examination Orientation: Person, Place, Situation, Time Memory: Intact Mood: Neutral Affect: Constricted Speech: Soft Attention: WNL Concentration: WNL Association: WNL Fund of Knowledge: WNL Formal Thought Process: No Impairment Description of patient's judgement and insight: good, fair Psychotic Thoughts and Behaviors: denies any AVH Suicidal Ideation: No Current Homicidal Ideation?: No Discharge Summary - Discharge Note Reason for Hospitalization: HPI: 51 y.o. F, single, with 2 children (30yo daughter [estranged] and son who recently ), currently living with a friend, unemployed, and uninsured, who presents here for depression and heroin use. Patient states that she has been feeling very depressed over the last several months, especially since her son was murdered in [place] a few months ago. She admits to suicidal thoughts without any specific plan. Patient has had suicidal thoughts many times in the past, which includes a few attempts with overdose. Additionally, patient admits to hearing voices without any specific orders, seeing shadows, and feeling anxious and paranoid. Patient admits to using drugs recreationally >20yrs. Estimates 2-3 bags of heroin snorted/day, cocaine daily and a few cigarettes/ day. Denies any other opioids, marijuana, benzos or other substances. Patient is otherwise in NAD. No other complaints are noted at this time. She does not have any specific plan following discharge, but expresses her interest in a long -term rehab. Consultations:: List each consultation separately and include: 1. Reason for request. 2. Findings. 3. Follow-up Summary of Hospital Course include:: 1. Description of specific treatment plan utilized for patients during their course of treatmen. 2. Summarize the time- course for resolution of acute symptoms and/or regressed behaviors. 3. Describe issues identified and worked on during hospitalization. 4. Describe medication utilized. 5. Describe medical problems identified and treated. 6. Reassessment of suicide risk Summary of Hospital Course: During the course of her stay, patient (pt) started progressively improving and no longer remained irritable, depressed, and suicidal. Her mood and anxiety were improved and she started attending groups and meetings and started socializing. Patient denied any feelings of hopelessness, helplessness, and worthlessness, denied any problem with the sleep or appetite, denied suicidal ideation or homicidal ideation. Pt denied any auditory or visual hallucinations. She denied any withdrawal symptoms. Some changes were made in her current medications and patient was discharged on following medications. She tolerated these medications very well and denied any side effects. She was discharged to the [facility], with plan to f/u with [facility]. - Final Diagnosis (DSM 5) Condition upon Discharge: STABLE DSM 5: Major depression, recur./severe/with psychosis PTSD Opioid use d/o -severe Cocaine use d/0 - severe Disposition: HOME/ ROUTINE Follow-up Treatment Plan: Education: Pt was educated and counseled about the risks and benefits of taking and not taking medications. Pt was educated and counseled about the risks of drinking and abusing drugs. Pt was educated and counseled to go to the ER or call 911 if pt develop suicidal ideation or homicidal ideation, worsening of symptoms or severe side effects of the meds. Prescriptions/Medication Reconciliation: Escitalopram [Lexapro] 20 mg PO DAILY #30 tab Gabapentin [Neurontin] 400 mg PO BID #60 cap levETIRAcetam [Keppra] 500 mg PO BID #60 tab Naproxen [Anaprox DS] 550 mg PO BID PRN #60 tab PRN Reason: Pain, Moderate (4-7) QUEtiapine [Seroquel] 100 mg PO HS #30 tab - Smoking Cessation Smoking Cessation Medication prescribed: No - Antipsychotic Medications Pt discharged on 2 or more routine antipsychotic medications: No
[2017-11-28 15:30] VITALS: BP 115/79; PULSE 76
== END 2017-11-28 16:51 | disposition home or self-care (01) | DRG 430 ==
LOC: C.ER 08:06 → C.5E 14:13
PROVIDERS: ADMIT Psychiatry & Neurology Psychiatry; ATTEND Psychiatry & Neurology Psychiatry
DX: F33.3 Major depressive disorder, recurrent, severe with psychotic symptoms (principal); G40.909 Epilepsy, unspecified, not intractable, without status epilepticus; F11.10 Opioid abuse, uncomplicated; F14.90 Cocaine use, unspecified, uncomplicated; F43.10 Post-traumatic stress disorder, unspecified; I10 Essential (primary) hypertension; J45.909 Unspecified asthma, uncomplicated; Z59.0 Homelessness; Z87.891 Personal history of nicotine dependence

== ENCOUNTER 2018-02-24 23:54 | Inpatient (IN) | payer MEDICAID ==
--- NOTE | 2018-02-25 00:19 | C.PDOC ---
History Of Present Illness 52 year old female presents to the ER with suicidal ideation. Patient admits to using cocaine and heroin an hour ago. Denies physical complaints at this time. Chief Complaint (Nursing): Psychiatric Evaluation History Per: Patient History/Exam Limitations: no limitations Onset/Duration Of Symptoms: Hrs Current Symptoms Are (Timing): Still Present Suicide/Self Injury Attempted (Context): None Modifying Factor(s): Cocaine, Other (Heroin) Associated Symptoms: Suicidal Thoughts Involuntary Hold By: None Recent travel outside of the [place]: No Past Medical History Reviewed: Historical Data, Nursing Documentation, Vital Signs Vital Signs: Last Vital Signs Temp 98.6 F 02/25/18 03:17 Pulse 79 02/25/18 03:17 Resp 18 02/25/18 03:17 BP 131/82 02/25/18 03:17 Pulse Ox 99 02/25/18 03:17 - Medical History PMH: Anemia (takes iron pills), Anxiety, Asthma, Bipolar Disorder, Depression, HTN, Seizures (uses keppra for control) Surgical History: Cholecystectomy - [facility] DETOXIFICATION SERVICES FOR SUBSTANCE ABUSE TREATMENT (08/17/17) GROUP FRAMING AND HANGING FOR SUBSTANCE ABUSE TREATMENT, PSYCHOEDUCATION (02/13/16) INDIV PSYCHOTHERAPY FOR SUBSTANCE ABUSE TREATMENT, SUPPORT (08/17/17) INDIV PSYCHOTHERAPY FOR SUBSTANCE ABUSE, COGNITIV BEHAVIORAL (08/17/17) INDIV PSYCHOTHERAPY FOR SUBSTANCE ABUSE, PSYCHOEDUCATION (08/17/17) Family History: States: Unknown Family Hx - Social History Hx Tobacco Use: Yes Hx Alcohol Use: No Hx Substance Use: Yes - Immunization History Hx Tetanus Toxoid Vaccination: No Hx Influenza Vaccination: No Hx Pneumococcal Vaccination: No Review Of Systems Constitutional: Negative for: Fever, Chills Cardiovascular: Negative for: Chest Pain, Palpitations Respiratory: Negative for: Cough, Shortness of Breath Gastrointestinal: Negative for: Nausea, Vomiting, Abdominal Pain Psych: Positive for: Suicidal ideation Physical Exam - Physical Exam Appears: Non-toxic, No Acute Distress Skin: Normal Color, Warm, Dry Head: Atraumatic, Normacephalic Eye(s): bilateral: Normal Inspection Oral Mucosa: Moist Neck: Normal, Supple Chest: Symmetrical, No Tenderness Cardiovascular: Rhythm Regular Respiratory: Normal Breath Sounds, No Rales, No Rhonchi, No Wheezing Gastrointestinal/Abdominal: Soft, No Tenderness Extremity: Normal ROM (x4) Neurological/Psych: Oriented x3, Normal Speech ED Course And Treatment - Laboratory Results Result Diagrams: 02/25/18 00:44 02/25/18 00:44 O2 Sat by Pulse Oximetry: 100 (Room air) Pulse Ox Interpretation: Normal Progress Note: Blood work and urinalysis ordered. Disposition Discussed With DrMendy: Melissa Santana Doctor Will See Patient In The: Hospital Counseled Patient/Family Regarding: Diagnosis - Disposition Disposition: HOSPITALIZED Disposition Time: 03:39 Condition: STABLE Forms: [facility] (Turkmen) - POA Present On Arrival: None - Clinical Impression Clinical Impression: Major depressive disorder, Drug abuse - Scribe Statement The provider has reviewed the documentation as recorded by the Scribe Swapnil Foster All medical record entries made by the Scribe were at my direction and personally dictated by me. I have reviewed the chart and agree that the record accurately reflects my personal performance of the history, physical exam, medical decision making, and the department course for this patient. I have also personally directed, reviewed, and agree with the discharge instructions and disposition.
[2018-02-25 00:49] LABS: BASO # 0.1 K/uL (0.0-0.2); BASO % 0.9 % (0.0-2.0); EOS # 0.1 K/uL (0.0-0.7); EOS % 0.9 % (0.0-4.0); HEMOGLOBIN 13.8 g/dL (11.0-16.0); LYMPH # 2.3 K/uL (1.0-4.3); LYMPH % 25.8 % (20.0-40.0); MEAN CELL VOLUME 81.3 fL (81.0-99.0); MEAN CORPUSCULAR HEMOGLOBIN 26.8 pg (27.0-31.0); MEAN PLATELET VOLUME 8.8 fL (7.2-11.7); MONO # 0.7 K/uL (0.0-0.8); MONO % 7.8 % (0.0-10.0); NEUT # 5.7 K/uL (1.8-7.0); NEUT % 64.6 % (50.0-75.0); NRBC % 0.1 % (0.0-2.0); RBC 5.15 Mil/uL (3.80-5.20); RED CELL DISTRIBUTION WIDTH 13.6 % (11.5-14.5); WHITE BLOOD COUNT 8.8 K/uL (4.8-10.8)
[2018-02-25 00:56] LABS: SQUAMOUS EPITHIAL 12 /hpf (0-5); URINE BILIRUBIN NEGATIVE (NEGATIVE); URINE BLOOD 1+ (NEGATIVE); URINE CLARITY Hazy (Clear); URINE COLOR Amber (YELLOW); URINE GLUCOSE (UA) NORMAL (Normal); URINE LEUKOCYTE ESTERASE TRACE Leu/uL (Negative); URINE PROTEIN 2+ mg/dL (NEGATIVE)
[2018-02-25 01:04] LABS: ALB/GLOB RATIO 1.2 (1.0-2.1); ALBUMIN 4.5 g/dL (3.5-5.0); ALT/SGPT 25 U/L (9-52); AST/SGOT 29 U/L (14-36); BLOOD UREA NITROGEN 29 mg/dL (7-17); CALCIUM 9.7 mg/dl (8.6-10.4); GFR AFRICAN-AMERICAN 18; GFR NON-AFRICAN AMERICAN 15
[2018-02-25 01:07] LABS: BARBITURATES, UR NEGATIVE (NEGATIVE); BENZODIAZEPINES, UR NEGATIVE (NEGATIVE); PHENCYCLIDINE, UR NEGATIVE (NEGATIVE)
[2018-02-25 01:10] LABS: OPIATES, UR POSITIVE (NEGATIVE)
[2018-02-25] MEDS ORDERED: Potassium Chloride 20 mEq/15 ml LIQ UD PO STA (02:54)
[2018-02-25] MEDS ORDERED: Potassium Chloride 20 mEq/15 ml LIQ UD ONE (02:59)
--- NOTE | 2018-02-25 12:05 | PCM.BM ---
<ShanitaAngélica - Last Filed: 02/25/18 12:03> Treatment assets and liabiliti Patient Assests: cooperative, motivated, self-reliant, ADL independent, negotiates basic needs, cognitively intact Patient Liabilities: live alone, financial problems, poor support system, substance abuse, medical problems - Milieu Protocol Maintain good personal hygiene: daily Encourage regular showers, daily Remind patient to perform daily oral care, daily Assist patient to perform ADL's Conduct patient checks and document Observation sheet: Q15 minutes Maintain personal safety: every shift Educate patient to report safety concerns to staff, every shift Monitor environment for contraband/sharps Medication safety: Monitor for expected outcome, potential side effects: every shift, Assess barriers to learning: every shift, Assess readiness for medication education: every shift <PopGilson - Last Filed: 02/27/18 11:24> - Diagnosis (1) Schizophrenia Status: Acute Interventions: 02/27/18 11:24 * Assess/adjust medications daily and /or as needed * See patient on an individual basis 7x/week to assess status of hallucinations * Discuss risks, benefits, side effects and alternatives of medications * (2) Drug abuse Status: Acute Interventions: 02/27/18 11:24 * Assess 7x/week regarding severity of withdrawal * Educate regarding risks, benefits, side effects and alternatives of medications * Use Motivational Interviewing for abstinence * Use CBT for relapse prevention * Medication management for withdrawal symptoms * Encourage medication assisted treatment * <Dominique Marcelo - Last Filed: 02/27/18 13:49> Family Contact Family involvement: Famliy/SO not involved - Goals for Treatment Patient goals for treatment: "I want to go to rehab." Discharge/Continuing Care - Education Needs Education Needs: Patient Medication, Patient Coping Skills, Patient Placement options, Patient Community resources - Discharge Discharge Criteria: Tolerates medication w/o severe side effects, No longer exhibiting s/s of withdrawal, Reduction of target symptoms Discharge to:: Substance Abuse Rehab - Treatment Team Participation Discussed with Family/SO: No Was Patient/Family/SO present at Treatment Team Meeting: Yes
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
[2018-02-25] MEDS ORDERED: Aluminum Hydroxide/Magnesium Hydroxide Susp (30 mL) PO PRN (14:49)
--- NOTE | 2018-02-26 14:39 | PCM.PYCHPN ---
Psychiatric Progress Note - Psychiatric Progress Note Patient seen today, length of contact: 15 min Patient Chief Complaint: I am still feeling depressed.' Problems Identified/Issues Discussed: Patient seen and evaluated, chart reviewed and discussed with the nurse. Patient remained disorganized and internally preoccupied. She still reports of hearing voices. Patient still appears paranoid and delusional. Patient reports withdrawal symptoms including nausea, headaches, cramps and sweating. She reports depressed mood and feelings of hopelessness and helplessness. Patient remained isolated, confined and withdrawn. Patient is compliant with medications and denies any side effects. Symptoms are improving but need more time to stabilize. Support and psychoeducation given. Medication Change: Yes Medical Record Reviewed: Yes Mental Status Examination - Cognitive Function Orientation: Person, Place, Situation, Time Memory: Intact Attention: Poor Concentration: Poor Association: Loose Fund of Knowledge: Poor - Mood Mood: Depressed, Anxious - Affect Affect: Constricted - Speech Speech: Soft - Formal Thought Process Formal Thought Process: Hallucinations, Delusions, Paranoia, Loosening of associations - Suicidal Ideation Suicidal Ideation: No - Homicidal Ideation Homicidal Ideation: No Goal/Treatment Plan - Goal/Treatment Plan Need for Continued Stay: Severe depression anxiety, Severe functional impairment Progress Toward Problem(s) and Goals/Treatment Plan: Bipolar depressed severe with psychotic features CBT Psychoeducation Supportive therapy, group therapy, individual therapy Trazodone 50 mg by mouth daily at bedtime Keppra 500 mg pO BID Haldol 5 mg PO BID Opioid use disorder severe CBT Psychoeducation Supportive therapy, individual therapy Use [place] for abstinence Opioid withdrawal CBT Psychoeducation Supportive therapy, individual therapy Clonidine when necessary Methadone taper Cocaine use disorder moderate Monitor signs and symptoms Use [place] for abstinence
--- NOTE | 2018-02-28 01:17 | PCM.PYCHPN ---
Psychiatric Progress Note - Psychiatric Progress Note Patient seen today, length of contact: 15 min Patient Chief Complaint: I am still hearing voices.' Problems Identified/Issues Discussed: Patient seen and evaluated, chart reviewed and discussed with the nurse. She still reports of hearing voices. Patient still appears paranoid and delusional. Patient remained disorganized and internally preoccupied. Patient reports withdrawal symptoms including nausea, headaches, cramps and sweating. She reports depressed mood and feelings of hopelessness and helplessness. Patient is compliant with medications and denies any side effects. Symptoms are improving but need more time to stabilize. Support and psychoeducation given. Medication Change: Yes (increase haldol) Medical Record Reviewed: Yes Mental Status Examination - Cognitive Function Orientation: Person, Place, Situation, Time Memory: Intact Attention: Poor Concentration: Poor Association: Loose Fund of Knowledge: Poor - Mood Mood: Depressed, Anxious - Affect Affect: Constricted - Speech Speech: Soft - Formal Thought Process Formal Thought Process: Hallucinations, Delusions, Paranoia, Loosening of associations - Suicidal Ideation Suicidal Ideation: No - Homicidal Ideation Homicidal Ideation: No Goal/Treatment Plan - Goal/Treatment Plan Need for Continued Stay: Severe depression anxiety, Severe functional impairment Progress Toward Problem(s) and Goals/Treatment Plan: Bipolar depressed severe with psychotic features CBT Psychoeducation Supportive therapy, group therapy, individual therapy Trazodone 50 mg by mouth daily at bedtime Keppra 500 mg pO BID Haldol 10 mg PO BID Paxil 20 mg PO Q daily Opioid use disorder severe CBT Psychoeducation Supportive therapy, individual therapy Use [place] for abstinence Opioid withdrawal CBT Psychoeducation Supportive therapy, individual therapy Clonidine when necessary Methadone taper Cocaine use disorder moderate Monitor signs and symptoms Use OH for abstinence
[2018-02-28] MEDS ORDERED: Pneumococcal 23-Valent Vaccine IM ONE (10:00)
--- NOTE | 2018-02-28 19:15 | PCM.PYCHPN ---
Psychiatric Progress Note - Psychiatric Progress Note Patient seen today, length of contact: 15 min Patient Chief Complaint: I'm feeling better. Problems Identified/Issues Discussed: Patient seen, chart reviewed, case discussed with the staff. Issues related to illness and treatment were discussed with the patient and staff. Reported compliant with treatment with no adverse affects. Tolerating treatment very well. Feeling much better. Patient is improving but needs more time for stabilization. Aftercare discussed with the patient. At the time of evaluation, patient was awake alert oriented 3, had no delusions , no auditory or visual hallucinations, no suicidal ideations or homicidal ideations. Medical Problems: Seizure disorder Diagnostic Results: Reviewed DSM 5 Symptoms Update: Some improvement with treatment Medication Change: No Medical Record Reviewed: Yes Mental Status Examination - Cognitive Function Orientation: Person, Place, Situation, Time Memory: Intact Attention: WNL Concentration: WNL Association: Loose Fund of Knowledge: WNL Decription of patient's judgement and insights: Fair - Mood Mood: Anxious (Much less than before) - Affect Affect: Constricted - Speech Speech: Soft - Formal Thought Process Formal Thought Process: Paranoia, Loosening of associations - Suicidal Ideation Suicidal Ideation: No - Homicidal Ideation Homicidal Ideation: No Goal/Treatment Plan - Goal/Treatment Plan Need for Continued Stay: Remain at risks for inpatient hospitalization, Discharge may exacerbated symptoms, Severe functional impairment Progress Toward Problem(s) and Goals/Treatment Plan: Some improvement with treatment. Patient education. Supportive therapy. Continue treatment as before. Patient will go back to [facility] after discharge from the hospital for follow-up care.
--- NOTE | 2018-03-01 19:17 | PCM.PYCHPN ---
Psychiatric Progress Note - Psychiatric Progress Note Patient seen today, length of contact: 15 min Patient Chief Complaint: I'm feeling better. Problems Identified/Issues Discussed: Patient seen, chart reviewed, case discussed with the staff. Issues related to illness and treatment were discussed with the patient and staff. Reported compliant with treatment with no adverse affects. Tolerating treatment very well. Feeling much better. Patient is improving but needs more time for stabilization. Aftercare discussed with the patient. At the time of evaluation, patient was awake alert oriented 3, had no delusions , no auditory or visual hallucinations, no suicidal ideations or homicidal ideations. Medical Problems: Seizure disorder Diagnostic Results: Reviewed DSM 5 Symptoms Update: Improving with treatment Medication Change: No Medical Record Reviewed: Yes Mental Status Examination - Cognitive Function Orientation: Person, Place, Situation, Time Memory: Intact Attention: WNL Concentration: WNL Association: WNL Fund of Knowledge: WN Decription of patient's judgement and insights: Fair - Mood Mood: Anxious (Much less than before) - Affect Affect: Constricted - Speech Speech: Soft - Formal Thought Process Formal Thought Process: No Impairment - Suicidal Ideation Suicidal Ideation: No - Homicidal Ideation Homicidal Ideation: No Goal/Treatment Plan - Goal/Treatment Plan Need for Continued Stay: Remain at risks for inpatient hospitalization, Discharge may exacerbated symptoms, Severe functional impairment Progress Toward Problem(s) and Goals/Treatment Plan: Some improvement with treatment. Patient education. Supportive therapy. Continue treatment as before. Patient will go back to [facility] after discharge from the hospital for follow-up care. Estimated Date of D/C: 03/03/18 - Smoking Cessation Smoking Cessation Initiated: No
--- NOTE | 2018-03-02 14:30 | PCM.PYCHPN ---
Psychiatric Progress Note - Psychiatric Progress Note Patient seen today, length of contact: 15 min Patient Chief Complaint: I was hearing voices.' Problems Identified/Issues Discussed: Patient seen and evaluated, chart reviewed and discussed with the nurse. She still reports of hearing voices. Patient still appears paranoid and delusional. Patient remained disorganized and internally preoccupied. Patient reports withdrawal symptoms including nausea, headaches, cramps and sweating. She reports depressed mood and feelings of hopelessness and helplessness. Patient is compliant with medications and denies any side effects. Symptoms are improving but need more time to stabilize. Support and psychoeducation given. Medication Change: No Medical Record Reviewed: Yes Mental Status Examination - Cognitive Function Orientation: Person, Place, Situation, Time Memory: Intact Attention: WNL Concentration: WNL Association: WNL Fund of Knowledge: WNL - Mood Mood: Anxious (Much less than before) - Affect Affect: Constricted - Speech Speech: Soft - Formal Thought Process Formal Thought Process: No Impairment - Suicidal Ideation Suicidal Ideation: No - Homicidal Ideation Homicidal Ideation: No Goal/Treatment Plan - Goal/Treatment Plan Need for Continued Stay: Remain at risks for inpatient hospitalization, Discharge may exacerbated symptoms, Severe functional impairment Progress Toward Problem(s) and Goals/Treatment Plan: Bipolar depressed severe with psychotic features CBT Psychoeducation Supportive therapy, group therapy, individual therapy Trazodone 50 mg by mouth daily at bedtime Haldol 5 mg PO BID Opioid use disorder severe CBT Psychoeducation Supportive therapy, individual therapy Use CA for abstinence Opioid withdrawal CBT Psychoeducation Supportive therapy, individual therapy Clonidine when necessary Methadone taper Cocaine use disorder moderate Monitor signs and symptoms Use CA for abstinence H/O Seizures Keppra 500 mg pO BID Estimated Date of D/C: 03/03/18
[2018-03-03 06:24] VITALS: BP 109/72; PULSE 98; RESP 16; TEMP 98.7; O2SAT 100
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
== END 2018-03-03 11:37 | disposition home or self-care (01) | DRG 430 ==
LOC: C.ER 23:54 → C.9E 02-25 03:41 → C.5E 02-25 11:37
PROVIDERS: ADMIT Psychiatry & Neurology Psychiatry; ATTEND Psychiatry & Neurology Psychiatry
PROC: HZ2ZZZZ Detoxification Services for Substance Abuse Treatment (ICD-10-PCS; principal; 2018-02-25)
DX: F31.5 Bipolar disorder, current episode depressed, severe, with psychotic features (principal); F14.10 Cocaine abuse, uncomplicated; F11.23 Opioid dependence with withdrawal; F20.9 Schizophrenia, unspecified; G40.909 Epilepsy, unspecified, not intractable, without status epilepticus; I10 Essential (primary) hypertension; R45.851 Suicidal ideations; Z87.891 Personal history of nicotine dependence; Z91.5 Personal history of self-harm; J45.909 Unspecified asthma, uncomplicated; F17.210 Nicotine dependence, cigarettes, uncomplicated

== ENCOUNTER 2018-03-17 02:18 | Emergency (ER) | payer SELFPAY ==
[2018-03-17 02:36] VITALS: O2SAT 98
[2018-03-17 03:14] LABS: BASO # 0.1 K/uL (0.0-0.2); BASO % 0.8 % (0.0-2.0); EOS # 0.2 K/uL (0.0-0.7); EOS % 1.6 % (0.0-4.0); HEMOGLOBIN 13.6 g/dL (11.0-16.0); LYMPH # 3.3 K/uL (1.0-4.3); LYMPH % 26.9 % (20.0-40.0); MEAN CORPUSCULAR HEMOGLOBIN 26.6 pg (27.0-31.0); MEAN CORPUSCULAR HGB CONC 32.8 g/dL (33.0-37.0); MEAN PLATELET VOLUME 8.7 fL (7.2-11.7); MONO # 0.7 K/uL (0.0-0.8); MONO % 6.1 % (0.0-10.0); NEUT # 7.8 K/uL (1.8-7.0); NEUT % 64.6 % (50.0-75.0); RBC 5.1 Mil/uL (3.80-5.20); WHITE BLOOD COUNT 12.1 K/uL (4.8-10.8)
[2018-03-17 03:25] LABS: BARBITURATES, UR NEGATIVE (NEGATIVE); BENZODIAZEPINES, UR NEGATIVE (NEGATIVE); PHENCYCLIDINE, UR NEGATIVE (NEGATIVE)
[2018-03-17 03:32] LABS: ALB/GLOB RATIO 1.3 (1.0-2.1); ALBUMIN 4.5 g/dL (3.5-5.0); ALT/SGPT 23 U/L (9-52); AST/SGOT 22 U/L (14-36); BLOOD UREA NITROGEN 19 mg/dL (7-17); CALCIUM 9.6 mg/dl (8.6-10.4); GFR AFRICAN-AMERICAN 28; GFR NON-AFRICAN AMERICAN 23
[2018-03-17] MEDS ORDERED: Potassium Chloride 20 mEq ER Tab PO STA ×2 (03:55→07:22)
--- NOTE | 2018-03-17 03:56 | C.PDOC ---
History Of Present Illness 52 y/o female with Hx of depression and heroin abuse presents to ED requesting detox. Patient states last heroin abuse was yesterday. Patient also reports nausea. Denies SI, HI, hallucinations, or any other physical complaints. Time Seen by Provider: 03/17/18 02:51 Chief Complaint (Nursing): Psychiatric Evaluation History Per: Patient History/Exam Limitations: no limitations Onset/Duration Of Symptoms: Hrs Current Symptoms Are (Timing): Still Present Suicide/Self Injury Attempted (Context): None Modifying Factor(s): Narcotics (Heroin) Associated Symptoms: Depression. denies: Suicidal Thoughts, Suicidal Plan (now denies contrary to triage) Involuntary Hold By: None Recent travel outside of the [place]: No Past Medical History Reviewed: Historical Data, Nursing Documentation, Vital Signs Vital Signs: Last Vital Signs Temp 98.3 F 03/17/18 06:11 Pulse 72 03/17/18 06:11 Resp 18 03/17/18 06:11 BP 122/74 03/17/18 06:11 Pulse Ox 98 03/17/18 06:11 - Medical History PMH: Anemia (takes iron pills), Anxiety, Asthma, Bipolar Disorder, Depression, HTN, Seizures (uses keppra for control) Denies: Sexually Transmitted Disease Surgical History: Cholecystectomy - [facility] DETOXIFICATION SERVICES FOR SUBSTANCE ABUSE TREATMENT (02/25/18) GROUP CEMENT MIXER FOR SUBSTANCE ABUSE TREATMENT, PSYCHOEDUCATION (02/13/16) INDIV PSYCHOTHERAPY FOR SUBSTANCE ABUSE TREATMENT, SUPPORT (08/17/17) INDIV PSYCHOTHERAPY FOR SUBSTANCE ABUSE, [facility]GNIT[facility]IOR[facility] (08/17/17) INDIV PSYCHOTHERAPY FOR SUBSTANCE ABUSE, PSYCHOEDUCATION (08/17/17) Family History: States: Unknown Family Hx - Social History Hx Tobacco Use: Yes Hx Alcohol Use: No Hx Substance Use: Yes - Immunization History Hx Tetanus Toxoid Vaccination: No Hx Influenza Vaccination: No Hx Pneumococcal Vaccination: No Review Of Systems Constitutional: Negative for: Fever, Chills Gastrointestinal: Negative for: Nausea, Vomiting, Abdominal Pain, Diarrhea Skin: Negative for: Rash Neurological: Negative for: Weakness, Numbness Psych: Negative for: Suicidal ideation Physical Exam - Physical Exam Appears: Well, Non-toxic, No Acute Distress Skin: Normal Color, Warm, Dry Head: Atraumatic, Normacephalic Eye(s): bilateral: Normal Inspection, PERRL, EOMI Oral Mucosa: Moist Neck: Supple Chest: Symmetrical, No Tenderness Cardiovascular: Rhythm Regular Respiratory: Normal Breath Sounds, No Decreased Breath Sounds, No Rales, No Rhonchi, No Wheezing Gastrointestinal/Abdominal: Soft, No Tenderness, No Distention Extremity: Normal ROM, No Deformity Extremity: Bilateral: Atraumatic, Normal Color And Temperature, Normal ROM Neurological/Psych: Oriented x3, Normal Speech Gait: Steady ED Course And Treatment - Laboratory Results Result Diagrams: 03/17/18 03:05 03/17/18 03:05 O2 Sat by Pulse Oximetry: 98 (RA) Pulse Ox Interpretation: Normal Progress Note: Administered Zofran odt. Ordered blood work and urinalysis. potassium ordered. pt remained stable in ED, no signs of withdrawal. 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 - Scribe Statement The provider has reviewed the documentation as recorded by the Scribe Palak Bassett All medical record entries made by the Scribe were at my direction and personally dictated by me. I have reviewed the chart and agree that the record accurately reflects my personal performance of the history, physical exam, medical decision making, and the department course for this patient. I have also personally directed, reviewed, and agree with the discharge instructions and disposition. Physician Patient Turnover Patient Signed Over To: Usha Thibodeaux Handoff Comments: pending crisis eval
[2018-03-17] MEDS ORDERED: Potassium Chloride 20 mEq ER Tab PO ONE ×2 (04:11→07:45)
[2018-03-17 04:12] LABS: SQUAMOUS EPITHIAL 10 /hpf (0-5); URINE BACTERIA RARE (<OCC); URINE BILIRUBIN 1+ (NEGATIVE); URINE BLOOD 1+ (NEGATIVE); URINE CLARITY Hazy (Clear); URINE COLOR Amber (YELLOW); URINE GLUCOSE (UA) NORMAL (Normal); URINE HYALINE CAST >20 /lpf (0-2); URINE LEUKOCYTE ESTERASE 2+ Leu/uL (Negative); URINE PROTEIN 1+ mg/dL (NEGATIVE)
[2018-03-17 06:40] LABS: OPIATES, UR POSITIVE (NEGATIVE)
[2018-03-17 08:11] LABS: SQUAMOUS EPITHIAL 8 /hpf (0-5); URINE BACTERIA RARE (<OCC); URINE BILIRUBIN NEGATIVE (NEGATIVE); URINE BLOOD NEGATIVE (NEGATIVE); URINE CLARITY Hazy (Clear); URINE COLOR Yellow (YELLOW); URINE GLUCOSE (UA) NORMAL (Normal); URINE LEUKOCYTE ESTERASE 1+ Leu/uL (Negative); URINE PROTEIN 1+ mg/dL (NEGATIVE)
[2018-03-17 09:13] VITALS: BP 103/69; PULSE 73; RESP 20; TEMP 98.4
== END 2018-03-17 09:33 | disposition home or self-care (01) ==
LOC: C.ER 02:18
DX: F32.1 Major depressive disorder, single episode, moderate (principal); F11.10 Opioid abuse, uncomplicated; I10 Essential (primary) hypertension; D64.9 Anemia, unspecified; F17.210 Nicotine dependence, cigarettes, uncomplicated
CPT/HCPCS: 80053; 81001; 85025; 99285; G0480